=== PATIENT | female | born 1940 | race Caucasian/White ===

== ENCOUNTER → 2017-05-31 | Outpatient (CLI) | payer OTHER ==
[~2017-05-31] MED LIST: CLINDAMYCIN300 M1 PO; COZ50 PO; ECO81 PO; LAC PO; LEV250 PO; LIPI10 PO; MEDDP PO; NIC14 TD; NOR5 PO; PROAIR HFA0.09 MG/A1 INH; SIMVASTATIN10 M1
== END | disposition home or self-care (01) ==
LOC: MA 13:37
DX: Z85.3 Personal history of malignant neoplasm of breast (principal); R91.1 Solitary pulmonary nodule
CPT/HCPCS: G0204

== ENCOUNTER 2018-07-27 16:14 | Inpatient (IN) | payer OTHER ==
[~2018-07-27] VITALS: Ht 157.5 cm; Wt 97.2 kg
[2018-07-27 16:20] VITALS: Ht 157.5 cm; Wt 97.2 kg
[2018-07-27 17:37] LABS: BASOPHIL % 0.8 % (0-2); PLATELET COUNT 283 x10^3mcL (130-400); RED CELL DISTRIBUTION WIDTH 13.6 % (11.5-14.5)
[2018-07-27 17:47] LABS: CALCIUM 8.9 mg/dL (8.5-10.1); CARBON DIOXIDE 26.9 mmol/L (21-32); CHLORIDE SERUM 105 mmol/L (98-107); CREATININE SERUM 0.9 mg/dL (0.6-1.0); GLUCOSE SERUM 115 mg/dL (74-106); POTASSIUM SERUM 4.3 mmol/L (3.5-5.1); SODIUM SERUM 140 mmol/L (136-145)
[2018-07-27 17:52] LABS: ALBUMIN 3.5 g/dL (3.4-5.0); ALKALINE PHOSPHATASE 184 U/L (46-116); ALT/SGPT 24 U/L (14-59); AST/SGOT 17 U/L (15-37); BILIRUBIN TOTAL 0.3 mg/dL (0.20-1.00); TOTAL PROTEIN, SERUM 7.1 g/dL (6.4-8.2)
[2018-07-27] MEDS ORDERED: SYNTHROID0.175 MG PO (19:25)
[2018-07-27] MEDS ORDERED: METFORMIN HYDR500 M1 PO (19:25)
[2018-07-27 21:38] VITALS: BP 193/80
[2018-07-28 00:02] VITALS: BP 149/56
[2018-07-28 05:10] VITALS: BP 142/60
[2018-07-28 09:48] VITALS: BP 164/65
[2018-07-28 18:18] VITALS: BP 142/57
[2018-07-28 19:57] VITALS: BP 168/60
[2018-07-28 22:32] VITALS: BP 135/59
[2018-07-29 05:17] VITALS: BP 118/64
[2018-07-29 07:01] LABS: ALKALINE PHOSPHATASE 155 U/L (46-116); ALT/SGPT 19 U/L (14-59); AST/SGOT 16 U/L (15-37); BILIRUBIN DIRECT 0.13 mg/dL (0.0-0.2); BILIRUBIN TOTAL 0.3 mg/dL (0.20-1.00); CALCIUM 8.7 mg/dL (8.5-10.1); CARBON DIOXIDE 20.6 mmol/L (21-32); CHLORIDE SERUM 100 mmol/L (98-107); CREATININE SERUM 0.9 mg/dL (0.6-1.0); GLUCOSE SERUM 230 mg/dL (74-106); POTASSIUM SERUM 3.9 mmol/L (3.5-5.1); SODIUM SERUM 131 mmol/L (136-145); TOTAL PROTEIN, SERUM 6.6 g/dL (6.4-8.2)
[2018-07-29 07:03] LABS: ALBUMIN 3.1 g/dL (3.4-5.0)
[2018-07-29 07:11] LABS: BASOPHIL % 0.1 % (0-2); PLATELET COUNT 248 x10^3mcL (130-400); RED CELL DISTRIBUTION WIDTH 13.4 % (11.5-14.5)
[2018-07-29 09:30] VITALS: BP 156/55
[2018-07-29 16:50] VITALS: BP 133/94
[2018-07-29 21:00] VITALS: BP 155/64
[2018-07-30 05:29] LABS: PLATELET COUNT 286 x10^3mcL (130-400); RED CELL DISTRIBUTION WIDTH 13.3 % (11.5-14.5)
[2018-07-30 05:30] LABS: BASOPHIL % 0 % (0-2)
[2018-07-30 05:33] VITALS: BP 164/65
[2018-07-30 05:54] LABS: CARBON DIOXIDE 26.8 mmol/L (21-32); CHLORIDE SERUM 99 mmol/L (98-107); CREATININE SERUM 0.7 mg/dL (0.6-1.0); GLUCOSE SERUM 174 mg/dL (74-106); POTASSIUM SERUM 5.1 mmol/L (3.5-5.1); SODIUM SERUM 134 mmol/L (136-145)
[2018-07-30 09:10] VITALS: BP 156/65
[2018-07-30 17:34] VITALS: BP 139/45
[2018-07-30 20:56] VITALS: BP 148/60
[2018-07-31 04:47] VITALS: BP 131/52
[2018-07-31 07:46] LABS: BASOPHIL % 0.3 % (0-2); PLATELET COUNT 294 x10^3mcL (130-400); RED CELL DISTRIBUTION WIDTH 13.5 % (11.5-14.5)
[2018-07-31 07:52] LABS: CALCIUM 8.3 mg/dL (8.5-10.1); CREATININE SERUM 0.9 mg/dL (0.6-1.0); POTASSIUM SERUM 4.8 mmol/L (3.5-5.1)
[2018-07-31 08:06] LABS: CARBON DIOXIDE 25.2 mmol/L (21-32); CHLORIDE SERUM 101 mmol/L (98-107); GLUCOSE SERUM 130 mg/dL (74-106); SODIUM SERUM 135 mmol/L (136-145)
[2018-07-31 09:25] VITALS: BP 136/54
[2018-07-31] MEDS ORDERED: LAC PO (13:36)
[2018-07-31 14:11] VITALS: BP 136/54
== END 2018-07-31 14:46 | disposition home or self-care (01) | DRG 155 ==
LOC: ED 16:14 → MU 19:33
PROVIDERS: Emergency Medicine; Internal Medicine; Internal Medicine Pulmonary Disease
DX: K11.20 Sialoadenitis, unspecified (principal); K12.2 Cellulitis and abscess of mouth; J44.9 Chronic obstructive pulmonary disease, unspecified; E11.9 Type 2 diabetes mellitus without complications; I10 Essential (primary) hypertension; E78.00 Pure hypercholesterolemia, unspecified; E66.01 Morbid (severe) obesity due to excess calories; Z88.0 Allergy status to penicillin; Z85.3 Personal history of malignant neoplasm of breast; Z85.22 Personal history of malignant neoplasm of nasal cavities, middle ear, and accessory sinuses; M27.2 Inflammatory conditions of jaws; E78.5 Hyperlipidemia, unspecified; F17.200 Nicotine dependence, unspecified, uncomplicated; E03.9 Hypothyroidism, unspecified; K11.5 Sialolithiasis
CPT/HCPCS: 82962; J0696; J1100; J1650; J1815; J2270; J3370; J3490; J7509; Q9967